=== PATIENT | male | born 1985 | race Caucasian/White ===

== ENCOUNTER 2019-09-17 11:38 | Day surgery (SDC) | payer OTHER, SELFPAY ==
[2019-09-17] VITALS (7 sets, daily range): BP systolic 113–124; BP diastolic 74–81; PULSE 58–76; RESP 11–16; TEMP 36.2–37.1; O2SAT 97–100; BMI 28.7
--- NOTE | 2019-09-17 | PATH_ITS ---
[facility] Accession Number: [id number] . 01 Material submitted: . colon - DESCENDING COLON POLYP . 02 Diagnosis: Descending Colon, Polyp: Colonic mucosa with prominent benign lymphoid aggregate. Negative for dysplasia or malignancy. . [facility] 09/18/2019 1317 Local . 02 Electronically signed: . Eran Olivier MD, PhD, Pathologist NPI- [id number] . 01 Gross description: . DESCENDING COLON POLYP: Received in formalin is 1 fragment(s) of hartmann, soft tissue measuring 0.3 x 0.2 x 0.1 cm submitted entirely in 1 cassette(s) /[place] 09/17/2019 2227 Local . 02 Pathologist provided ICD-10: K63.5 . 02 CPT . 896311 Performed at: 01 [facility] [address] [id number] MD Jony Olvera MD Phone: [phone] Performed at: 02 [facility] [address] [place], [place] [id number] MD Marva Wang MD Phone: [phone]
--- NOTE | 2019-09-17 11:32 | PM.HP.1 ---
History of Present Illness History of Present Illness Date Patient Seen: 09/17/19 Chief complaint: [id number] COLONOSCOPY W/POSS BX Narrative: 34-year-old male seen at our office on 08/08/2019 due to rectal bleeding. Please refer to that office note for further details. Is here for endoscopic evaluation for any luminal pathology Exam Narrative Exam Narrative: General: Patient is overweight, not in apparent distress Cardiovascular: Regular rate and rhythm, no murmurs, rubs, or gallops; no evidence of edema; no palpable abdominal aortic aneurysm Gastrointestinal: Normoactive bowel sounds, soft, nontender, nondistended, no rebound tenderness, no hepatosplenomegaly, no evidence of hernia Assessment & Plan Assessment & Plan narrative: 34-year-old male with history of rectal bleeding here for endoscopic evaluation. The patient denies any further rectal bleeding for the past 3 weeks Regarding the procedure(s), the risks and potential complications, benefits, and alternatives (including not doing the procedure) were discussed with the patient. The risks include but are not limited to bleeding, splenic injury, infection, perforation which may require surgical intervention, missed lesions, and adverse reactions to sedative medicines. After a question and answer period, the patient agreed to proceed with the procedure(s) and gives informed consent.
[2019-09-17] MEDS: SODIUM CHLORIDE 0.9% 1,000 ML 70 ML IV (12:29)
[2019-09-17] MEDS: MIDAZOLAM 5 MG/5 ML VIAL IV (13:08)
[2019-09-17] MEDS: fentaNYL 250 MCG/5 ML INJ IV (13:08)
--- NOTE | 2019-09-17 13:11 | PM.OP.ENDO ---
Operative Date/Time/Diagnoses Date of procedure: 09/17/19 Procedure Notes Procedure in detail: Surgeon: Justice Jesus MD Procedure: Colonoscopy with cold forceps polypectomy Preoperative diagnosis: Rectal bleeding Postoperative diagnosis: Descending colon polyp status post polypectomy, grade 1 internal hemorrhoids Medications: Conscious sedation using for mg IV of Midazolam and 100 mcg IV of Fentanyl Preanesthesia Assessment An H and P was performed/updated and the Px?s ASA class is 1. The procedure was discussed in detail with the patient. The potential risks and complications including infection, bleeding, missed lesions, perforation, need for surgery in case of perforation, prolonged hospital stay, and were explained. A brief question and answer period was allotted and once all questions were answered, informed consent was obtained. The patient was brought back to the procedure room and placed on standard monitoring. The patient?s vital signs were monitored continuously throughout the entire procedure. Prior to starting, a timeout was performed to confirm the patient?s identity, allergies, medications, and procedure. Procedure in detail The patient was placed in left lateral decubitus position and once adequate sedation was obtained a BETO was performed. The digital rectal examination did not reveal any palpable lesions. The tip of the colonoscope was placed in the anal canal and advanced without difficulty all the way to the cecum which was identified by the appendiceal orifice and the ileocecal valve. Careful examination of all medina of the colon was performed with irrigation of any residual stool. In the descending colon, a 2 mm sessile polyp was removed by means of cold Jumbo forceps. Resection and retrieval was complete with minimal bleeding. Retroflexion was performed in the rectum which revealed grade 1 internal hemorrhoids The patient tolerated the procedure well and will be brought back to the recovery area to be discharged once criteria are met. The prep was judged to be good and adequate to identify polyps less than 5 mm. The withdrawal time was 8 minutes. The total physician intraservice time was 13 minutes. Complications There were no complications and estimated blood loss was minimal. Recommendations: Resume previous diet Follow up pathology results Repeat colonoscopy in 5 years if the polyp is adenomatous otherwise, screening colonoscopy is recommended at age 50 Call our office ([facility]) to schedule follow-up if you have recurrent symptoms An emergency contact number was given to the patient for any complications related to the procedure
== END 2019-09-17 14:10 | disposition home or self-care (01) ==
PROVIDERS: Visit Provider Internal Medicine Gastroenterology
PROC: 0DJD8ZZ Inspection of Lower Intestinal Tract, Via Natural or Artificial Opening Endoscopic (ICD-10-PCS; CPT 45378; principal; 2019-09-17 13:30)
DX: K62.5 Hemorrhage of anus and rectum (principal); K64.0 First degree hemorrhoids; K63.5 Polyp of colon
CPT/HCPCS: 45380; J2250; J3010

== ENCOUNTER → 2023-10-19 12:16 | Outpatient (CLI) | payer OTHER, SELFPAY ==
--- NOTE | 2023-10-19 12:19 | DI.RAD.S_ITS ---
PROCEDURE: FL SHOULDER INJECTION MR/CT LT INDICATIONS: PAIN IN LEFT SHOULDER COMPARISON: None. TECHNIQUE: The indications, alternatives, benefits, risks, and complications of the procedure were explained to the patient. Written informed consent was obtained and placed in the chart. The shoulder was examined fluoroscopically and a site for needle placement chosen for entry into the glenohumeral joint from an anterior approach. The skin was prepped and draped in a sterile fashion, and 1% lidocaine infiltrated from skin down to joint capsule. A spinal needle was inserted into the glenohumeral joint, and a small amount of iodinated contrast media injected to confirm intra-articular placement of the needle tip. This was followed by approximately 12 mL dilute solution of a gadolinium containing MR contrast agent. The needle was removed and a dressing was applied. The patient was given postprocedural instructions and sent to the MR suite for MR imaging. FINDINGS: A single fluoroscopic spot image demonstrates intra-articular location of injected iodinated contrast. IMPRESSION: Successful fluoroscopically guided administration of dilute Gadolinium solution into the shoulder joint for MR arthrogram. Dictated by: Clay Low M.D. on 10/19/2023 at 16:05 Approved by: Clay Low M.D. on 10/19/2023 at 16:05
--- NOTE | 2023-10-19 12:19 | DI.MRI.S_ITS ---
PROCEDURE: MR SHOULDER LT W CON INDICATIONS: PAIN IN LEFT SHOULDER TECHNIQUE: After the administration of 12 mL of dilute intra-articular Gadolinium contrast, oblique coronal T1 and T2 spin echo with fat saturation, oblique sagittal T1 spin echo with and without fat saturation, oblique sagittal T2 fast spin echo with fat saturation, axial T1 spin echo with fat saturation through the shoulder. COMPARISON: None. FINDINGS: Image quality: Excellent. Rotator cuff: Low-grade articular and bursal surface partial thickness tear involving distal supraspinatus at its insertion on the humeral head is seen extending to musculotendinous junction. Low-grade articular surface partial-thickness tear involving distal infraspinatus at its insertion on the humeral head is also noted. The subscapularis tendon is intact. No full-thickness rotator cuff tendon rupture. No rotator cuff muscle atrophy on sagittal images. Bones and bursae: No bone marrow contusions or fractures. Mild acromioclavicular joint osteoarthritic changes are seen with joint space narrowing and small marginal osteophyte formation depressing the musculotendinous junction of supraspinatus. The acromion demonstrates conventional anatomy, without an os acromiale. Capsule and soft tissues: There is fraying of superior anterior labrum with contrast extension at 12 to 2 o'clock position suggestive of superior anterior labral tear. The glenohumeral ligaments appear intact. The long head of the biceps tendon demonstrates normal location and morphology. The rotator interval appears normal, without fibrosis. The coracohumeral ligament is of normal thickness. No intra-articular bodies. IMPRESSION: 1. Finding is consistent with superior anterior left shoulder labral tear at 12 to 2 o'clock position. 2. Low-grade articular and bursal surface partial thickness tear involving distal supraspinatus extending to musculotendinous junction. Low-grade articular surface partial-thickness tear involving distal infraspinatus. No full-thickness rotator cuff tendon rupture. 3. No marrow edema. No fracture or dislocation. Mild acromioclavicular joint osteoarthritis. No gross intra-articular loose bodies. Dictated by: Clay Low M.D. on 10/19/2023 at 15:57 Approved by: Clay Low M.D. on 10/19/2023 at 15:59
[2023-10-19] MEDS: LIDOCAINE 1% 20 ML INJ (13:47)
[2023-10-19] MEDS: SODIUM CHLORIDE 0.9 % 20 ML VIAL IV (13:47)
== END ==
LOC: RAD 12:18
DX: M19.012 Primary osteoarthritis, left shoulder (principal); M75.112 Incomplete rotator cuff tear or rupture of left shoulder, not specified as traumatic; M25.512 Pain in left shoulder
CPT/HCPCS: 23350; 73222; A9579

== ENCOUNTER → 2024-05-23 19:10 | Outpatient (CLI) | payer OTHER, SELFPAY ==
--- NOTE | 2024-05-23 19:12 | DI.MRI.S_ITS ---
PROCEDURE: MRFOOT LT WO CON INDICATIONS: PAIN IN LT FOOT / HX OF I D AND SOFT TISSUE ABSCES TECHNIQUE: Multiphasic, multisequence MRI of the forefoot was performed, without intravenous contrast administration. COMPARISON: None. FINDINGS: Image quality: Excellent. Bones and joints: No bone marrow contusions or metatarsal stress fractures. The sesamoid bones appear in expected positions, without internal edema. No metatarsophalangeal joint degeneration. No intraosseous lesions. Soft tissues: The Lisfranc ligament is intact. The flexors, and the extensor tendons are unremarkable. Muscles are normal in signal. No muscle edema or fatty atrophy. Visualized plantar fascia is unremarkable. No drainable fluid collection. No significant subcutaneous edema of the forefoot. IMPRESSION: Normal left forefoot MRI. Dictated by: Ni Chase M.D. on 05/26/2024 at 10:47 Approved by: Ni Chase M.D. on 05/26/2024 at 10:52
== END ==
DX: M79.672 Pain in left foot (principal)
CPT/HCPCS: 73718

== ENCOUNTER → 2024-11-13 14:11 | Outpatient (CLI) | payer OTHER, SELFPAY ==
--- NOTE | 2024-11-13 14:13 | DI.CT.S_ITS ---
PROCEDURE: CT CHEST W CON INDICATIONS: HEMOPTYSIS TECHNIQUE: After the administration of intravenous contrast, 5 mm thick sections acquired from the pulmonary apices to the posterior costophrenic angles. 1 mm axial lung, 5 mm thick coronal and sagittal reformats and 7 mm axial MIP were acquired. For radiation dose reduction, the following was used: automated exposure control, adjustment of mA and/or kV according to patient size. COMPARISON: None. FINDINGS: Image quality: Diagnostic Lungs and pleura: Left lower lung nodule measuring 1.1 cm with a central calcification and linear opacity connecting to the airway. There is an adjacent left calcified hilar node. Other micro nodules are present. No pleural effusions Mediastinum, heart, and esophagus: Normal heart size. No pathologic lymph nodes by size criteria. Chest wall and thyroid: Unremarkable Upper abdomen: No significant abnormality identified in the partially visualized upper abdomen Bones: No aggressive appearing osseous abnormality IMPRESSION: 1.1 cm calcified left lung nodule with linear opacity connecting to the airway and calcified left hilar lymph node -this may be sequelae of a granulomatous process. In the setting of hemoptysis however, consider bronchoscopic evaluation and imaging follow-up to ensure stability depending on clinical context. Other micro nodules are present, overall low suspicion. No other nodule seen measuring over 0.6 cm (threshold for Fleischner follow-up guidelines) Dictated by: Francisco Javier Pryor M.D. on 11/13/2024 at 16:42 Approved by: Francisco Javier Pryor M.D. on 11/13/2024 at 16:51
== END ==
DX: R04.2 Hemoptysis (principal); R91.8 Other nonspecific abnormal finding of lung field
CPT/HCPCS: 71260; Q9967

== ENCOUNTER → 2025-06-24 15:40 | Outpatient (CLI) | payer OTHER, SELFPAY ==
--- NOTE | 2025-06-24 15:41 | DI.CT.S_ITS ---
PROCEDURE: CT CHEST W CON
== END ==
LOC: CT 15:41
DX: R04.2 Hemoptysis (principal); R91.1 Solitary pulmonary nodule
CPT/HCPCS: 71260; Q9967